=== PATIENT | female | born 1940 | race Caucasian/White ===

== ENCOUNTER 2022-04-01 09:07 | Inpatient (IN) ==
[2022-04-01] MEDS ORDERED: NS 500 ML IV 500 ML IV ONE ×2 (09:25→09:36)
[2022-04-01] MEDS ORDERED: ZOFRAN INJ 4 MG VIAL IVP ONE (09:25)
[2022-04-01 09:29] VITALS: BMI 32.9
--- NOTE | 2022-04-01 09:34 | DR.GENAD ---
HPI Time Seen Time Seen by Provider: 04/01/22 09:25 PCP Primary Care Physician: ANSHU CADET Complaint/Symptoms Chief Complaint Doctors Comments: 81 y/o female presents with vomiting and weakness. PT is a diabetic, had a routine check-up yesterday. Had her DM med increased from 2 to 4 mg BID. Took higher dose with dinner. + nausea, vomiting since last pm. No report of diarrhea or abdominal pain. + generalized weakness this am. Denies fever, chills, URI symptoms, urinary difficulties. Chief Complaint:: PT C/O "ELEVATED BLOOD SUGAR" SINCE LAST NIGHT ASSOCIATED WITH ONE EPISODE OF VOMITING LAST NIGHT AND MULTIPLE EPISODES OF VOMITING THIS MORNING WITH GENERALIZED WEAKNESS. PT DID VOMIT ONCE IN TRIAGE Self Treatment fo Chief Complaint: PT WAS SWITCHED FROM GLIMEPIRIDE 2MG PO BID TO 4MG PO BID WITH FIRST DOSE LAST PM. COVID-19 Coronavirus risk:travel/contact w/high risk person: No Has patient experienced Coronavirus symptoms: No Nurses notes reviewed Nurses Notes Review: Yes Source History Provided: Patient Mode of Arrival Mode of Arrival: Wheelchair Timing Onset of Chief Complaint: 04/01/22 PMH PMH Past Medical History: Yes Past Medical History: Diabetes, Dyslipidemia and Hypertension Past Medical History Comment: GLAUCOMA Past Surgical History: Yes Surgical History: Hysterectomy Past Surgical History Comment: SKIN CANCER REMOVED FROM BUTTOCK, CATARACT SURGERY Family History History of Family Medical Conditions: Yes Family Medical History: Diabetes Mellitus, [place] and Coronary Artery Disease Social History Does patient currently use any type of tobacco product: No Have you used tobacco products in the last 12 months: No Type of Tobacco Use: None Does any household member use tobacco: No Alcohol Use: None Do you use any recreational Drugs:: No Lives With: Spouse Lives Where: Home Travel Risk Coronavirus risk:travel/contact w/high risk person: No Has patient experienced Coronavirus symptoms: No Infectious screening In the last 2 months have you had wt loss of >10#?: NO Have you had fever, night sweats or hemotysis?: No Have you traveled outside the country in the last 6 months?: No Isolation: Standard ROS Review of Systems Constitutional: Weakness; negative Fever Eyes: No Symptoms Reported ENTM: No Symptoms Reported Respiratoy: No Symptoms Reported Cardiovascular: No Symptoms Reported Gastrointestinal/Abdominal: Nausea and Vomiting; negative Abdominal Pain or Diarrhea Genitourinary: No Symptoms Reported Neurological: Weakness Musculoskeletal: No Symptoms Reported Integumentary: No Symptoms Reported Psychiatric: No Symptoms Reported All Other Systems: Reviewed and Negative PE Vital Signs Vitals: Temperature 98.1 F Pulse Rate [Left Brachial] 74 Pulse Rate 78 Respiratory Rate 22 Blood Pressure [Right Arm] 106/66 Blood Pressure [Left Arm] 142/70 Blood Pressure 128/61 O2 Sat by Pulse Oximetry 96 General General Appearance: Alert and In No Apparent Distress Eyes Eye exam: PERRL and EOMI ENT Mouth Exam: Normal Inspection Neck Neck Exam: Normal Inspection; negative Tenderness Respiratory Respiratory Exam: Normal Lung Sounds Bilat; negative Accessory Muscle Use or Respiratory Distress Respiratory Exam: Bilateral: Clear to Auscultation Cardiovascular Cardiovascular Exam: Regular Rate, Normal Rhythm and Normal Heart Sounds Abdominal Exam Abdominal Exam: Normal Bowel Sounds and Soft; negative Tenderness Extremities Extremities Exam: Normal Inspection; negative Edema Neurologic Neurological Exam: Alert, Oriented X3 and CN II-XII Intact; negative Motor Sensory Deficit Skin Skin Exam: Warm and Dry COURSE Treatment Treatment: 81 y/o female with nausea, vomiting and weakness since last pm. W/u initiated, given IV fluids, IV zofran. W/u shows very low sodium at 115, with low chloride at 79. Glucose elevated at 226. CXR without acute abnormalities, CT head done - no acute abnormalities. Will admit for hydration, to to replace her sodium. Discussed wiht her attending's (Dr Bazzi) RN (Luz) for ad mission. [facility] Labs Reviewed Laboratory Results Reviewed?: Yes Result Diagrams: 04/01/22 09:35 04/01/22 09:58 Laboratory: WBC 6.8 X10^3/uL (3.6-10.0) 04/01/22 09:35 RBC 4.38 X10^6/uL (3.5-5.4) 04/01/22 09:35 Hgb 13.1 g/dL (12.0-16.0) 04/01/22 09:35 Hct 36.3 % (36.0-47.0) 04/01/22 09:35 MCV 82.9 fL (80.0-100.0) 04/01/22 09:35 MCH 29.9 pg (27.0-34.0) 04/01/22 09:35 MCHC 36.1 g/dL (33.0-35.0) H 08/18/22 09:35 RDW 14.2 % (11.6-16.5) 04/01/22 09:35 Plt Count 344 X10^3/uL (150.0-450.0) 04/01/22 09:35 MPV 7.6 fL (7.4-11.0) 04/01/22 09:35 Neut % (Auto) 83.0 % (42.0-75.0) H 04/01/22 09:35 Lymph % (Auto) 9.9 % (21.0-51.0) L 04/01/22 09:35 [place] % (Auto) 5.4 % (0.0-13.0) 04/01/22 09:35 Eos % (Auto) 0.9 % (0.9-2.9) 04/01/22 09:35 Baso % (Auto) 0.8 % (0.2-1.0) 04/01/22 09:35 Neut # (Auto) 5.7 x10^3/uL (2.2-4.8) H 04/01/22 09:35 Lymph # (Auto) 0.7 X10^3/uL (1.3-2.9) L 04/01/22 09:35 [place] # (Auto) 0.4 x10^3/uL (0.3-0.8) 04/01/22 09:35 Eos # (Auto) 0.1 x10^3/uL (0.0-0.2) 04/01/22 09:35 Baso # (Auto) 0.1 X10^3/uL (0.0-0.1) 04/01/22 09:35 Absolute Nucleated RBC 0.0 /100WBC 04/01/22 09:35 Sodium 115 mmol/L (136-145) L* 04/01/22 09:58 Corrected Sodium 118 mmol/L (136-145) L 04/01/22 09:58 Potassium 3.6 mmol/L (3.5-5.1) 04/01/22 09:58 Chloride 79 mmol/L (98-107) L* 04/01/22 09:58 Carbon Dioxide 23.3 mmol/L (21-32) 04/01/22 09:58 BUN 13 mg/dL (7-18) 04/01/22 09:58 Creatinine 0.86 mg/dL (0.55-1.02) 04/01/22 09:58 Est GFR (MDRD) Af Amer > 60 (>60) 04/01/22 09:58 Est GFR (MDRD) Non-Af > 60 (>60) 04/01/22 09:58 Glucose 226 mg/dL (65-99) H 04/01/22 09:58 Calcium 8.6 mg/dL (8.5-10.1) 04/01/22 09:58 Corrected Calcium 9.4 mg/dL (8.5-10.1) 04/01/22 09:58 Total Bilirubin 0.50 mg/dL (0.2-1.0) 04/01/22 09:58 AST 21 Units/L (15-37) 04/01/22 09:58 ALT 19 Units/L (12-78) 04/01/22 09:58 Alkaline Phosphatase 65 Units/L (46-116) 04/01/22 09:58 Creatine Kinase 48 Units/L (26-192) 04/01/22 09:58 Troponin I High Sens 8.5 ng/L (4.0-60.0) 04/01/22 09:58 Total Protein 7.3 g/dL (6.4-8.2) 04/01/22 09:58 Albumin 3.0 g/dL (3.4-5.0) L 04/01/22 09:58 Globulin 4.3 g/dL (2.5-4.5) 04/01/22 09:58 Albumin/Globulin Ratio 0.7 Ratio (1.1-2.1) L 04/01/22 09:58 Lipase 109 Units/L (73-393) 04/01/22 09:58 Specimen Type Clean catch urine 04/01/22 11:06 Urine Color Straw (YELLOW) 04/01/22 11:06 Urine Appearance Slightly hazy (CLEAR) 04/01/22 11:06 Urine pH 6.0 (5.0 - 8.0) 04/01/22 11:06 Ur Specific [place] 1.020 (1.000-1.030) 04/01/22 11:06 Urine Protein Negative (NEGATIVE) 04/01/22 11:06 Urine Glucose (UA) 3+ (NEGATIVE) 04/01/22 11:06 Urine Ketones 1+ (NEGATIVE) 04/01/22 11:06 Urine Blood 1+ (NEGATIVE) 04/01/22 11:06 Urine Nitrite Negative (NEGATIVE) 04/01/22 11:06 Urine Bilirubin Negative (NEGATIVE) 04/01/22 11:06 Urine Urobilinogen Normal (NORMAL) 04/01/22 11:06 Ur Leukocyte Esterase Negative (NEGATIVE) 04/01/22 11:06 Urine RBC 0-2 /HPF (0-3) 04/01/22 11:06 Urine WBC None seen /HPF (0-5) 04/01/22 11:06 Ur Squamous Epith Cells Few /HPF (NEGATIVE) 04/01/22 11:06 Urine Bacteria Trace /HPF (NEGATIVE) 04/01/22 11:06 Ur Culture Indicated? No/not indicated 04/01/22 11:06 See comments in " Course" Opioid Opioid Risk Tool Age (Sergey box if 16-45): Yes History of Preadolescent Sexual Abuse: No Total: 1 Total Score Risk Category: Low Risk Copyright: Yeyo [employer] predicting aberrant behaviors Discharge Plan Diagnosis Discharge Problem: Acute hyponatremia Discharge Plan Patient Disposition: 09 ADMITTED INPATIENT Condition: Stable
[2022-04-01] MEDS ORDERED: ZOFRAN INJ 4 MG VIAL ONE (09:36)
[2022-04-01 09:46] LABS: BASOPHILS # (AUTO) 0.1 X10^3/uL (0.0-0.1); BASOPHILS % (AUTO) 0.8 % (0.2-1.0); EOSINOPHILS # (AUTO) 0.1 x10^3/uL (0.0-0.2); EOSINOPHILS % (AUTO) 0.9 % (0.9-2.9); HEMATOCRIT 36.3 % (36.0-47.0); HEMOGLOBIN 13.1 g/dL (12.0-16.0); LYMPHOCYTES # (AUTO) 0.7 X10^3/uL (1.3-2.9); LYMPHOCYTES % (AUTO) 9.9 % (21.0-51.0); MEAN CORPUSCULAR HEMOGLOBIN 29.9 pg (27.0-34.0); MEAN CORPUSCULAR HGB CONC 36.1 g/dL (33.0-35.0); MEAN CORPUSCULAR VOLUME 82.9 fL (80.0-100.0); MEAN PLATELET VOLUME 7.6 fL (7.4-11.0); MONOCYTES # (AUTO) 0.4 x10^3/uL (0.3-0.8); MONOCYTES % (AUTO) 5.4 % (0.0-13.0); NEUTROPHILS # (AUTO) 5.7 x10^3/uL (2.2-4.8); RED BLOOD COUNT 4.38 X10^6/uL (3.5-5.4); RED CELL DISTRIBUTION WIDTH 14.2 % (11.6-16.5); WHITE BLOOD COUNT 6.8 X10^3/uL (3.6-10.0)
[2022-04-01 10:22] LABS: ALANINE AMINOTRANSFERASE 19 Units/L (12-78); ALKALINE PHOSPHATASE 65 Units/L (46-116); ASPARTATE AMINO TRANSFERASE 21 Units/L (15-37); BLOOD UREA NITROGEN 13 mg/dL (7-18); CALCIUM 8.6 mg/dL (8.5-10.1); CARBON DIOXIDE 23.3 mmol/L (21-32); COR CA(FOR HYPOALB) 9.4 mg/dL (8.5-10.1); COR NA(FOR HYPERGLY) 118 mmol/L (136-145); CREATINE KINASE 48 Units/L (26-192); CREATININE 0.86 mg/dL (0.55-1.02); LIPASE 109 Units/L (73-393); TOTAL PROTEIN 7.3 g/dL (6.4-8.2); eGFR NON BLACK RACES > 60 (>60)
[2022-04-01 10:24] LABS: CHLORIDE 79 mmol/L (98-107); SODIUM 115 mmol/L (136-145)
[2022-04-01 11:18] LABS: BILIRUBIN,URINE NEGATIVE (NEGATIVE); BLOOD/HEMOGLOBIN,URINE 1+ (NEGATIVE); GLUCOSE, URINE 3+ (NEGATIVE); KETONES,URINE 1+ (NEGATIVE); LEUKOCYTE ESTERASE ,URINE NEGATIVE (NEGATIVE); NITRITES,URINE NEGATIVE (NEGATIVE); PROTEIN,URINE NEGATIVE (NEGATIVE); UROBILINOGEN,URINE NORMAL (NORMAL)
[2022-04-01 11:25] LABS: APPEARANCE,URINE SLIGHTLY HAZY (CLEAR); COLOR,URINE STRAW (YELLOW)
[2022-04-01 11:30] LABS: RBC,URINE 0-2 /HPF (0-3)
[2022-04-01 11:31] LABS: BACTERIA,URINE TRACE /HPF (NEGATIVE); SQUAMOUS EPITHELIAL CELL,UR FEW /HPF (NEGATIVE)
[2022-04-01] MEDS ORDERED: NS 1,000 ML IV 1,000 ML ONE (12:19)
[2022-04-01] MEDS: NS 1,000 ML IV 1,000 ML IV SCH ×2 (12:23→21:46)
--- NOTE | 2022-04-01 12:23 | CT ---
BRAIN W/O CONCLINICAL INDICATION: HYPONATREMIATECHNIQUE: Images were obtained through the head per standard CT protocol. Multiplanar reformatted images were generated from the CT dataset. Dose reduction techniques including Automated Exposure Control (AEC) and adjustment of mA and kV were utlized.COMPARISON:NoneFINDINGS:Diffuse patchy and confluent periventricular and subcortical hypoattenuation with associated volume loss . There is no evidence of acute infarction, intracranial hemorrhage, mass or mass effect, or abnormal extra-axial collection . The density of the larger dural venous sinuses is normal. Age-related, ex-vacuo dilatation of the ventricles and sulci . The skull base and calvarium are normal . The included paranasal sinuses and mastoid air cells are predominantly clear .IMPRESSION:1. No acute intracranial abnormality. Chronic microangiopathic changes and ex vacuo dilatation of the ventricles and sulci.[]Electronically signed by: JOSE LUNA (Apr 01, 2022 12:21:11)
--- NOTE | 2022-04-01 14:08 | RAD ---
HISTORYWEAKNESS, HTN, DIABETES.br GLAUCOMA.brHYSTERECTOMY.brCATARACTSTUDYCHEST, 1 VIEWCOMPARISONFINDINGSThe trachea is midline. The cardiac silhouette is unremarkable. The aorta is tortuous with atherosclerosis the lungs are clear without focal infiltrate or effusion. The bony thorax is unremarkable.IMPRESSIONNo acute cardiopulmonary findings .Electronically signed by: Rojelio Torres (Apr 01, 2022 14:06:55)
[2022-04-01] MEDS: VALIUM PO SCH (15:19)
[2022-04-01] MEDS ORDERED: ZESTRIL TAB 20 MG ONE (15:23)
[2022-04-01] MEDS: ZESTRIL TAB 20 MG PO SCH (15:30)
[2022-04-01] MEDS: NORVASC TAB 10 MG PO SCH (15:30)
[2022-04-01] MEDS: SNACK - Diabetic Appropriate PO SCH (21:45)
[2022-04-01] MEDS: ULTRAM PO SCH (21:46)
[2022-04-01] MEDS: LOPRESSOR TAB 50 MG PO SCH (21:46)
[2022-04-01] MEDS: AMARYL TAB 4 MG PO SCH (21:47)
[2022-04-02] MEDS: NS 1,000 ML IV 1,000 ML IV SCH ×4 (05:07→21:51)
[2022-04-02 06:15] LABS: BASOPHILS % (AUTO) 0.6 % (0.2-1.0); EOSINOPHILS # (AUTO) 0.2 x10^3/uL (0.0-0.2); EOSINOPHILS % (AUTO) 2.5 % (0.9-2.9); HEMATOCRIT 34.8 % (36.0-47.0); HEMOGLOBIN 12.3 g/dL (12.0-16.0); LYMPHOCYTES # (AUTO) 1.1 X10^3/uL (1.3-2.9); LYMPHOCYTES % (AUTO) 14.4 % (21.0-51.0); MEAN CORPUSCULAR HEMOGLOBIN 29.7 pg (27.0-34.0); MEAN CORPUSCULAR HGB CONC 35.3 g/dL (33.0-35.0); MEAN CORPUSCULAR VOLUME 84.1 fL (80.0-100.0); MEAN PLATELET VOLUME 7.4 fL (7.4-11.0); MONOCYTES # (AUTO) 0.6 x10^3/uL (0.3-0.8); MONOCYTES % (AUTO) 7.7 % (0.0-13.0); NEUTROPHILS # (AUTO) 5.6 x10^3/uL (2.2-4.8); NEUTROPHILS % (AUTO) 74.8 % (42.0-75.0); RED BLOOD COUNT 4.13 X10^6/uL (3.5-5.4); RED CELL DISTRIBUTION WIDTH 14.3 % (11.6-16.5); WHITE BLOOD COUNT 7.4 X10^3/uL (3.6-10.0)
[2022-04-02 06:31] LABS: ALANINE AMINOTRANSFERASE 18 Units/L (12-78); ALBUMIN 2.9 g/dL (3.4-5.0); ALKALINE PHOSPHATASE 61 Units/L (46-116); ASPARTATE AMINO TRANSFERASE 21 Units/L (15-37); BLOOD UREA NITROGEN 11 mg/dL (7-18); CALCIUM 8.2 mg/dL (8.5-10.1); CARBON DIOXIDE 26.6 mmol/L (21-32); CHLORIDE 88 mmol/L (98-107); COR CA(FOR HYPOALB) 9.1 mg/dL (8.5-10.1); CREATININE 0.84 mg/dL (0.55-1.02); TOTAL PROTEIN 6.9 g/dL (6.4-8.2); eGFR NON BLACK RACES > 60 (>60)
[2022-04-02 06:43] LABS: SODIUM 124 mmol/L (136-145)
[2022-04-02] MEDS ORDERED: ZESTRIL TAB 20 MG ONE (07:30)
[2022-04-02] MEDS: ULTRAM PO SCH ×2 (08:08→21:51)
[2022-04-02] MEDS: LOPRESSOR TAB 50 MG PO SCH ×2 (08:09→21:52)
[2022-04-02] MEDS: VALIUM PO SCH (08:09)
[2022-04-02] MEDS: AMARYL TAB 4 MG PO SCH ×2 (08:09→21:51)
[2022-04-02] MEDS: NORVASC TAB 10 MG PO SCH (08:09)
[2022-04-02] MEDS: ZESTRIL TAB 20 MG PO SCH (08:09)
[2022-04-02] MEDS ORDERED: POTASSIUM CHLORIDE LIQ 20 MEQ UDC PO PRN (11:02)
[2022-04-02] MEDS ORDERED: POTASSIUM CHL 60 MEQ/NS 0.45% 500 ML IV PRN (11:02)
[2022-04-02] MEDS ORDERED: KLOR-CON PO PRN (11:02)
[2022-04-02] MEDS ORDERED: POTASSIUM CHL 40 MEQ/NS 0.45% 500 ML IV PRN (11:02)
[2022-04-02] MEDS ORDERED: K-RIDER 10 MEQ/NS 100 ML 10 MEQ/100 ML BAG IV PRN (11:02)
[2022-04-02] MEDS ORDERED: MICRO K EXTEN CAP 10 MEQ PO PRN (11:02)
--- NOTE | 2022-04-02 11:42 | DR.H&P ---
H&P - History & Physical for Day of: H&P Date: 04/01/22 - Chief Complaint Chief Complaint: SOB, WEAKNESS, NAUSEA AND VOMITING - History of Present Illness History of Present Illness: IS A 81 YEAR OLD PATIENT OF OURS. SHE PRESENTED TO THE ER WITH COMPLAINTS OF WEAKNESS, SHORTNESS OF BREATH, NAUSEA, AND VOMITING. SHE ALSO COMPLAINS OF ELEVATED BLOOD GLUCOSE LEVELS. PATIENT REPORTS THAT SYMPTOMS STARTED ONE DAY PRIOR, AFTER HER GLIMEPERIDE WAS INCREASED FROM 2MG BID TO 4 MG BID. SHE REPORTS MULTIPLE EPISODES OF VOMITING SINCE INCREASING MEDICATION. HER PMH INCLUDES DM II, DYSLIPIDEMIA, HTN, GLAUCOMA, AND HYSTERECTOMY. ON ARRIVAL TO THE ER, VITALS WERE: 98.1-78-22-96%-128/61. LABS WERE OBTAINED. WBC 6.8, RBC 4.38, HGB 13.1, HCT 36.3, PLT COUNT 344, SODIUM 115, POTASSIUM 3.6, CHLORIDE 79, BUN 13, CREATININE 0.86, GLUCOSE 226, CALCIUM 8.6, AST 21, ALT 19, ALK PHOS 65, CREATINE KINASE 48, TOTAL PROTEIN 7.3, ALBUMIN 3.0, TSH 3RD GEN 0.425. URINALYSIS WAS OBTAINED AND WAS UNREMARKABLE. COVID-19 NEGATIVE. A CHEST XRAY WAS OBTAINED AND REVEALED: The trachea is midline. The cardiac silhouette is unremarkable. The aorta is tortuous with atherosclerosis the lungs are clear without focal infiltrate or effusion. The bony thorax is unremarkable. A BRAIN CT WAS OBTAINED AND REVEALED: No acute intracranial abnormality. Chronic microangiopathic changes and ex vacuo dilatation of the ventricles and sulci. IN THE ER, SHE WAS GIVEN A NORMAL SALINE BOLUS AND ZOFRAN 4MG IV X 1 DOSE. SHE WAS ADMITTED TO THE HOSPITAL FOR FURTHER EVALUATION AND TREATMENT OF HYPONATREMIA AND HYPOKALEMIA. SHE WAS STARTED ON NORMAL SALINE AT 125 ML/HR, THE POTASSIUM AND MAGNESIUM PROTOCOLS, AND HER HOME MEDICATIONS OF NORVASC, VALIUM, AMARYL, ZESTRIL, LOPRESSOR, AND TRAMADOL WERE RESUMED. WE WILL OBTAIN A CHEST CT WITH CONTRAST DUE TO COMPLAINTS OF SOB AND HYPONATREMIA. WE WILL RULE OUT ANY MALIGNANT PROCESS THAT MAY BE THE CAUSE OF HYPONATREMIA AND SOB. OTHERWISE, WE PLAN TO FOLLOW-UP WITH AM LABS AND CONTINUE TO MONITOR. TIME SPENT ON CLINICAL ASSESSMENT, REVIWING LABS AND IMAGING, DECISION MAKING, AND DOCUMENTATION GREATER THAN 75 MINUTES. - Past Medical History Past Medical History: Hypertension, Dyslipidemia, Diabetes - Past Surgical History Surgical History: Hysterectomy - Family History Family Medical History: Diabetes Mellitus, Cancer, Hypertension - Social History Does patient currently use any type of tobacco product: No Have you used tobacco products in the last 12 months: No Type of Tobacco Use: None Does any household member use tobacco: No Alcohol Use: None Drug Use: None - Medications Home Medications: STEROIDS Adverse Reaction (Uncoded 08/26/18 17:05) CONTINUE taking the following medications amlodipine 10 mg tablet 1 tab PO QDAY 04/01/22 [History] diazepam 2 mg tablet 1 tab PO QDAY 04/01/22 [History] fenofibrate nanocrystallized 145 mg tablet 1 tab PO QDAY 04/01/22 [History] glimepiride 4 mg tablet 1 tab PO BID 04/01/22 [History] lisinopril 20 mg tablet 1 tab PO QDAY 04/01/22 [History] lisinopril 20 mg-hydrochlorothiazide 25 mg tablet 1 tab PO QAM 04/01/22 [History] metoprolol tartrate 50 mg tablet 1 tab PO BID 04/01/22 [History] tramadol 50 mg tablet 1 tab PO BID 04/01/22 [History] - Review of Systems Constitutional: Weakness Eyes: No Symptoms Reported ENT: No Symptoms Reported Respiratory: See HPI, Shortness of Breath, SOB with Excertion Cardiovascular: No Symptoms Reported Gastrointestinal: Nausea, Vomiting Genitourinary: No Symptoms Reported Musculoskeletal: No Symptoms Reported Skin: No Symptoms Reported Neurological: Weakness - Physical Exam Vital Signs: Temperature 97.9 F Pulse Rate [Left Brachial] 65 Pulse Rate 78 Respiratory Rate 16 Blood Pressure [Right Arm] 132/61 Blood Pressure [Left Arm] 141/65 Blood Pressure 128/61 O2 Sat by Pulse Oximetry 94 Oriented: Normal Eyes: Normal Ear: Normal Nose: Normal Throat: Normal Respiratory: Diminished Throughout Cardiovascular: Normal : Normal Auscultation: Bowel Sounds: Normal Palpation: Normal Tenderness: Normal Skin: Decreased Turgur Musculoskeletal: Normal Psychiatric: Normal Mood Description: Calm Affect: Normal Speech Pattern: Clear - Assessment/Plan (1) Acute hyponatremia Status: Acute (2) Hypokalemia Status: Acute (3) Nausea and vomiting Qualifiers: Vomiting type: unspecified Qualified Code(s): R11.2 - Nausea with vomiting, unspecified Status: Acute (4) Shortness of breath Status: Acute - Allergies Allergies/Adverse Reactions: Allergies Allergy/AdvReac Type Severity Reaction Status Date / Time STEROIDS AdvReac Uncoded 08/26/18 17:05
[2022-04-02] MEDS: K-DUR TAB 20 MEQ PO PRN (12:51)
[2022-04-02] MEDS: MAGNESIUM SULFATE 1 GRAM/100 mL PREMIX 1 G/100 ML BAG IV PRN ×2 (12:52→15:15)
--- NOTE | 2022-04-02 13:06 | PCM.PROG ---
Progress Note - Progress Note for Day of Date of Exam: 04/02/22 - Subjective Subjective: WAS ADMITTED FOR TREATMENT FOR TREATMENT OF ACUTE HYPONATREMIA, HYPOKALEMIA, NAUSEA AND VOMITING, AND SHORTNESS OF BREATH. TODAY, SHE IS ALERT AND ORIENTED, LYING IN BED ON MORNING ROUNDS. SHE CONTINUES WITH COMPLAINTS OF GENERALIZED WEAKNESS AND SHORTNESS OF BREATH AND NAUSEA AT TIMES. ON EXAMINATION, HEART IS REGULAR IN RATE AND RHYTHM. BILATERAL LUNGS NOTED WITH DIMINISHED LUNG SOUNDS THROUGHOUT. ABDOMEN IS ROUND, SOFT, AND NON-TENDER WITH NORMAL BOWEL SOUNDS NOTED IN ALL QUADRANTS. NO UPPER OR LOWER EXTREMITY EDEMA NOTED. HER VITALS THIS MORNING ARE: 97.9-65-18-94%-132/61. LABS WERE OBTAINED. WBC 7.4, RBC 4.13, HGB 12.3, HCT 34.8, PLT COUNT 304, SODIUM 124, POTASSIUM 3.2, BUN 11, CREATININE 0.84, GLUCOSE 107, CALCIUM 8.2, AST 21, ALT 18, ALK PHOS 61, TOTAL PROTEIN 6.9, ALBUMIN 2.9. SHE IS CURRENTLY RECEIVING NORMAL SALINE AT 125 ML/HR, THE POTASSIUM AND MAGNESIUM PROTOCOLS, AND HER HOME MEDICATIONS OF NORVASC, VALIUM, AMARYL, ZESTRIL, LOPRESSOR, AND TRAMADOL WERE RESUMED. WE WILL OBTAIN A CHEST CT WITH CONTRAST DUE TO COMPLAINTS OF SOB AND HYPONATREMIA. WE WILL RULE OUT ANY MALIGNANT PROCESS THAT MAY BE THE CAUSE OF HYPONATREMIA AND SOB. OTHERWISE, WE PLAN TO FOLLOW-UP WITH AM LABS AND CONTINUE TO MONITOR. TIME SPENT ON CLINICAL ASSESSMENT, REVIWING LABS AND IMAGING, DECISION MAKING, AND DOCUMENTATION GREATER THAN 45 MINUTES. - Past Medical Family Social History Past Med/Fam/Surg Hx: No changes since H&P Allergies: Allergies STEROIDS Adverse Reaction (Uncoded 08/26/18 17:05) PT. STATES IT MAKES HER BLOOD SUGAR TOO HIGH. - Review of Systems ROS: No change since H&P - Vital Signs and I&O's Vital Signs: Temperature 98.0 F Pulse Rate [Left Brachial] 64 Pulse Rate 78 Respiratory Rate 18 Blood Pressure [Right Arm] 122/60 Blood Pressure [Left Arm] 141/65 Blood Pressure 128/61 O2 Sat by Pulse Oximetry 95 Intake and Output: Intake & Output 03/31/22 04/01/22 04/02/22 04/03/22 11:59 11:59 11:59 11:59 Intake Total 3308 / 3308 Balance 3308 / 3308 - Physical Exam Oriented: Normal Eyes: Normal Ear: Normal Nose: Normal Throat: Normal Respiratory: Generalized, Diminished Cardiovascular: Normal : Normal Auscultation: Bowel Sounds: Normal Palpation: Normal Tenderness: Normal Skin: Decreased Turgur Musculoskeletal: Normal Psychiatric: Normal Mood Description: Calm Affect: Normal Speech Pattern: Clear - Laboratory and Diagnostics Result Diagrams: 04/02/22 05:32 04/02/22 05:32 Labs: Laboratory WBC 7.4 X10^3/uL (3.6-10.0) 04/02/22 05:32 RBC 4.13 X10^6/uL (3.5-5.4) 04/02/22 05:32 Hgb 12.3 g/dL (12.0-16.0) 04/02/22 05:32 Hct 34.8 % (36.0-47.0) L 04/02/22 05:32 MCV 84.1 fL (80.0-100.0) 04/02/22 05:32 MCH 29.7 pg (27.0-34.0) 04/02/22 05:32 MCHC 35.3 g/dL (33.0-35.0) H 04/02/22 05:32 RDW 14.3 % (11.6-16.5) 04/02/22 05:32 Plt Count 304 X10^3/uL (150.0-450.0) 04/02/22 05:32 MPV 7.4 fL (7.4-11.0) 04/02/22 05:32 Neut % (Auto) 74.8 % (42.0-75.0) 04/02/22 05:32 Lymph % (Auto) 14.4 % (21.0-51.0) L 04/02/22 05:32 [place] % (Auto) 7.7 % (0.0-13.0) 04/02/22 05:32 Eos % (Auto) 2.5 % (0.9-2.9) 04/02/22 05:32 Baso % (Auto) 0.6 % (0.2-1.0) 04/02/22 05:32 Neut # (Auto) 5.6 x10^3/uL (2.2-4.8) H 04/02/22 05:32 Lymph # (Auto) 1.1 X10^3/uL (1.3-2.9) L 04/02/22 05:32 [place] # (Auto) 0.6 x10^3/uL (0.3-0.8) 04/02/22 05:32 Eos # (Auto) 0.2 x10^3/uL (0.0-0.2) 04/02/22 05:32 Baso # (Auto) 0.0 X10^3/uL (0.0-0.1) 04/02/22 05:32 Absolute Nucleated RBC 0.0 /100WBC 04/02/22 05:32 Sodium 124 mmol/L (136-145) L* 04/02/22 05:32 Corrected Sodium TNP 04/02/22 05:32 Potassium 3.2 mmol/L (3.5-5.1) L 04/02/22 05:32 Chloride 88 mmol/L (98-107) L 04/02/22 05:32 Carbon Dioxide 26.6 mmol/L (21-32) 04/02/22 05:32 BUN 11 mg/dL (7-18) 04/02/22 05:32 Creatinine 0.84 mg/dL (0.55-1.02) 04/02/22 05:32 Est GFR (MDRD) Af Amer > 60 (>60) 04/02/22 05:32 Est GFR (MDRD) Non-Af > 60 (>60) 04/02/22 05:32 Glucose 107 mg/dL (65-99) H 04/02/22 05:32 POC Glucose (mg/dL) 118 mg/dL (65-99) H 04/02/22 11:13 Calcium 8.2 mg/dL (8.5-10.1) L 04/02/22 05:32 Corrected Calcium 9.1 mg/dL (8.5-10.1) 04/02/22 05:32 Magnesium 1.7 mg/dL (1.7-2.9) 04/02/22 05:32 Total Bilirubin 0.50 mg/dL (0.2-1.0) 04/02/22 05:32 AST 21 Units/L (15-37) 04/02/22 05:32 ALT 18 Units/L (12-78) 04/02/22 05:32 Alkaline Phosphatase 61 Units/L (46-116) 04/02/22 05:32 Creatine Kinase 48 Units/L (26-192) 04/01/22 09:58 Troponin I High Sens 8.5 ng/L (4.0-60.0) 04/01/22 09:58 Total Protein 6.9 g/dL (6.4-8.2) 04/02/22 05:32 Albumin 2.9 g/dL (3.4-5.0) L 04/02/22 05:32 Globulin 4.0 g/dL (2.5-4.5) 04/02/22 05:32 Albumin/Globulin Ratio 0.7 Ratio (1.1-2.1) L 04/02/22 05:32 Lipase 109 Units/L (73-393) 04/01/22 09:58 TSH 3rd Generation 0.425 uIU/mL (0.358-3.74) 04/01/22 09:58 Specimen Type Clean catch urine 04/01/22 11:06 Urine Color Straw (YELLOW) 04/01/22 11:06 Urine Appearance Slightly hazy (CLEAR) 04/01/22 11:06 Urine pH 6.0 (5.0 - 8.0) 04/01/22 11:06 Ur Specific [place] 1.020 (1.000-1.030) 04/01/22 11:06 Urine Protein Negative (NEGATIVE) 04/01/22 11:06 Urine Glucose (UA) 3+ (NEGATIVE) 04/01/22 11:06 Urine Ketones 1+ (NEGATIVE) 04/01/22 11:06 Urine Blood 1+ (NEGATIVE) 04/01/22 11:06 Urine Nitrite Negative (NEGATIVE) 04/01/22 11:06 Urine Bilirubin Negative (NEGATIVE) 04/01/22 11:06 Urine Urobilinogen Normal (NORMAL) 04/01/22 11:06 Ur Leukocyte Esterase Negative (NEGATIVE) 04/01/22 11:06 Urine RBC 0-2 /HPF (0-3) 04/01/22 11:06 Urine WBC None seen /HPF (0-5) 04/01/22 11:06 Ur Squamous Epith Cells Few /HPF (NEGATIVE) 04/01/22 11:06 Urine Bacteria Trace /HPF (NEGATIVE) 04/01/22 11:06 Ur Culture Indicated? No/not indicated 04/01/22 11:06 SARS-CoV-2 (PCR) Negative (NEGATIVE) 04/01/22 11:45 - Plan (1) Acute hyponatremia Status: Acute Plan: NORMAL SALINE AT 125 ML/HR, THE POTASSIUM AND MAGNESIUM PROTOCOLS, AND HER HOME MEDICATIONS OF NORVASC, VALIUM, AMARYL, ZESTRIL, LOPRESSOR, AND TRAMADOL WERE RESUMED (2) Hypokalemia Status: Acute (3) Nausea and vomiting Status: Acute Qualifiers: Vomiting type: unspecified Qualified Code(s): R11.2 - Nausea with vomiting, unspecified (4) Shortness of breath Status: Acute
--- NOTE | 2022-04-02 14:19 | CT ---
HISTORYSOB, HYPOTHERMIASTUDYCT chest with IV contrastCOMPARISONX-ray 04/01/2022TECHNIQUEMultiple axial images of the chest were obtained from the thoracic inlet to the upper abdomenwith the administration of IV contrast. Sagittal and coronal reformations are performed. Dose reduction techniques including Automated Exposure Control (AEC) and adjustment of mA and kV were utilized.FINDINGSThere is cardiomegaly and probable mild CHF. There may be very minimal pulmonary edema in the lower lungs with slight septal thickening and interstitial densities. Likely minimal bibasilar atelectasis is present, also. No pleural effusion is seen and there is no pericardial effusion.Mild apical scarring is seen. No suggestion of pneumonia. Probably reactive mediastinal lymph nodes are seen. Coronary artery vascular calcifications are seen. Ascending thoracic aorta is upper normal limits in size and it tapers in the arch. No suggestion of aortic dissection. A few small reactive appearing periportal lymph nodes are seen.IMPRESSIONProbable mild CHF there may be mild pulmonary edema.Electronically signed by: Brannon Andino (Apr 02, 2022 14:17:27)
[2022-04-02] MEDS: SNACK - Diabetic Appropriate PO SCH (21:50)
[2022-04-03] MEDS: NS 1,000 ML IV 1,000 ML IV SCH ×3 (05:12→20:50)
[2022-04-03 06:36] LABS: BASOPHILS # (AUTO) 0.1 X10^3/uL (0.0-0.1); EOSINOPHILS # (AUTO) 0.2 x10^3/uL (0.0-0.2); LYMPHOCYTES # (AUTO) 1.1 X10^3/uL (1.3-2.9); MONOCYTES # (AUTO) 0.6 x10^3/uL (0.3-0.8)
[2022-04-03 06:55] LABS: ALANINE AMINOTRANSFERASE 21 Units/L (12-78); ALKALINE PHOSPHATASE 61 Units/L (46-116); ASPARTATE AMINO TRANSFERASE 23 Units/L (15-37); BLOOD UREA NITROGEN 12 mg/dL (7-18); CALCIUM 8.2 mg/dL (8.5-10.1); CARBON DIOXIDE 28.5 mmol/L (21-32); CHLORIDE 95 mmol/L (98-107); CREATININE 0.91 mg/dL (0.55-1.02); SODIUM 132 mmol/L (136-145); TOTAL PROTEIN 7.1 g/dL (6.4-8.2); eGFR NON BLACK RACES > 60 (>60)
[2022-04-03 07:04] LABS: HEMATOCRIT 35.6 % (36.0-47.0); HEMOGLOBIN 12.3 g/dL (12.0-16.0); LYMPHOCYTES % (AUTO) 19.1 % (21.0-51.0); MEAN CORPUSCULAR HEMOGLOBIN 29.4 pg (27.0-34.0); MEAN CORPUSCULAR HGB CONC 34.7 g/dL (33.0-35.0); MEAN CORPUSCULAR VOLUME 84.8 fL (80.0-100.0); MEAN PLATELET VOLUME 7.4 fL (7.4-11.0); MONOCYTES % (AUTO) 10.8 % (0.0-13.0); NEUTROPHILS # (AUTO) 3.7 x10^3/uL (2.2-4.8); NEUTROPHILS % (AUTO) 65.1 % (42.0-75.0); RED CELL DISTRIBUTION WIDTH 14.5 % (11.6-16.5); WHITE BLOOD COUNT 5.7 X10^3/uL (3.6-10.0)
[2022-04-03] MEDS ORDERED: ZESTRIL TAB 20 MG ONE (09:16)
[2022-04-03] MEDS: VALIUM PO SCH (09:33)
[2022-04-03] MEDS: LOPRESSOR TAB 50 MG PO SCH ×2 (09:34→20:50)
[2022-04-03] MEDS: AMARYL TAB 4 MG PO SCH ×2 (09:34→20:52)
[2022-04-03] MEDS: ULTRAM PO SCH ×2 (09:34→20:49)
[2022-04-03] MEDS: NORVASC TAB 10 MG PO SCH (09:35)
[2022-04-03] MEDS: ZESTRIL TAB 20 MG PO SCH (09:35)
[2022-04-03] MEDS: SNACK - Diabetic Appropriate PO SCH (20:52)
[2022-04-04] MEDS: NS 1,000 ML IV 1,000 ML IV SCH ×3 (04:40→22:01)
[2022-04-04 06:24] LABS: BASOPHILS # (AUTO) 0.1 X10^3/uL (0.0-0.1); EOSINOPHILS # (AUTO) 0.4 x10^3/uL (0.0-0.2); EOSINOPHILS % (AUTO) 5.4 % (0.9-2.9); HEMATOCRIT 36.7 % (36.0-47.0); HEMOGLOBIN 12.7 g/dL (12.0-16.0); LYMPHOCYTES # (AUTO) 1.6 X10^3/uL (1.3-2.9); LYMPHOCYTES % (AUTO) 24.5 % (21.0-51.0); MEAN CORPUSCULAR HEMOGLOBIN 29.6 pg (27.0-34.0); MEAN CORPUSCULAR HGB CONC 34.7 g/dL (33.0-35.0); MEAN CORPUSCULAR VOLUME 85.4 fL (80.0-100.0); MONOCYTES # (AUTO) 0.6 x10^3/uL (0.3-0.8); MONOCYTES % (AUTO) 8.6 % (0.0-13.0); NEUTROPHILS % (AUTO) 60.5 % (42.0-75.0); RED CELL DISTRIBUTION WIDTH 14.5 % (11.6-16.5); WHITE BLOOD COUNT 6.6 X10^3/uL (3.6-10.0)
[2022-04-04 06:46] LABS: ALANINE AMINOTRANSFERASE 22 Units/L (12-78); ALBUMIN 3.1 g/dL (3.4-5.0); ALKALINE PHOSPHATASE 67 Units/L (46-116); BLOOD UREA NITROGEN 10 mg/dL (7-18); CALCIUM 8.2 mg/dL (8.5-10.1); CARBON DIOXIDE 26.7 mmol/L (21-32); CHLORIDE 97 mmol/L (98-107); COR CA(FOR HYPOALB) 8.9 mg/dL (8.5-10.1); MAGNESIUM 1.9 mg/dL (1.7-2.9); SODIUM 134 mmol/L (136-145); TOTAL PROTEIN 7.3 g/dL (6.4-8.2); eGFR NON BLACK RACES > 60 (>60)
[2022-04-04 07:08] LABS: PLATELET MORPHOLOGY COMMENT NORMAL (NORMAL)
[2022-04-04 07:13] LABS: ASPARTATE AMINO TRANSFERASE 23 Units/L (15-37)
[2022-04-04] MEDS ORDERED: ZESTRIL TAB 20 MG ONE (07:44)
[2022-04-04] MEDS: K-DUR TAB 20 MEQ PO PRN (09:06)
[2022-04-04] MEDS: VALIUM PO SCH (09:07)
[2022-04-04] MEDS: LOPRESSOR TAB 50 MG PO SCH ×2 (09:07→20:26)
[2022-04-04] MEDS: ULTRAM PO SCH ×2 (09:08→20:26)
[2022-04-04] MEDS: ZESTRIL TAB 20 MG PO SCH (09:08)
[2022-04-04] MEDS: AMARYL TAB 4 MG PO SCH ×2 (09:09→21:25)
[2022-04-04] MEDS: NORVASC TAB 10 MG PO SCH (09:09)
[2022-04-04] MEDS: MAGNESIUM SULFATE 1 GRAM/100 mL PREMIX 1 G/100 ML BAG IV PRN ×2 (09:18→10:33)
[2022-04-04] MEDS: SNACK - Diabetic Appropriate PO SCH (20:00)
[2022-04-05] MEDS: NS 1,000 ML IV 1,000 ML IV SCH (05:09)
[2022-04-05 06:14] LABS: BASOPHILS # (AUTO) 0.1 X10^3/uL (0.0-0.1); BASOPHILS % (AUTO) 1.8 % (0.2-1.0); EOSINOPHILS # (AUTO) 0.4 x10^3/uL (0.0-0.2); EOSINOPHILS % (AUTO) 6.3 % (0.9-2.9); HEMATOCRIT 36.1 % (36.0-47.0); HEMOGLOBIN 12.7 g/dL (12.0-16.0); LYMPHOCYTES # (AUTO) 1.3 X10^3/uL (1.3-2.9); LYMPHOCYTES % (AUTO) 21.5 % (21.0-51.0); MEAN CORPUSCULAR HEMOGLOBIN 29.7 pg (27.0-34.0); MEAN CORPUSCULAR VOLUME 84.8 fL (80.0-100.0); MONOCYTES # (AUTO) 0.4 x10^3/uL (0.3-0.8); MONOCYTES % (AUTO) 7.1 % (0.0-13.0); NEUTROPHILS # (AUTO) 3.8 x10^3/uL (2.2-4.8); NEUTROPHILS % (AUTO) 63.3 % (42.0-75.0); RED BLOOD COUNT 4.26 X10^6/uL (3.5-5.4); RED CELL DISTRIBUTION WIDTH 14.6 % (11.6-16.5)
[2022-04-05 06:31] LABS: ALANINE AMINOTRANSFERASE 22 Units/L (12-78); ALBUMIN 2.9 g/dL (3.4-5.0); ALKALINE PHOSPHATASE 67 Units/L (46-116); ASPARTATE AMINO TRANSFERASE 24 Units/L (15-37); BLOOD UREA NITROGEN 8 mg/dL (7-18); CALCIUM 8.1 mg/dL (8.5-10.1); CARBON DIOXIDE 23.8 mmol/L (21-32); CHLORIDE 99 mmol/L (98-107); CREATININE 0.72 mg/dL (0.55-1.02); MAGNESIUM 1.9 mg/dL (1.7-2.9); SODIUM 134 mmol/L (136-145); TOTAL PROTEIN 7.1 g/dL (6.4-8.2); eGFR NON BLACK RACES > 60 (>60)
[2022-04-05 06:49] LABS: PLATELET MORPHOLOGY COMMENT NORMAL (NORMAL)
[2022-04-05] MEDS ORDERED: ZESTRIL TAB 20 MG ONE (08:13)
[2022-04-05] MEDS: ULTRAM PO SCH (08:34)
[2022-04-05] MEDS: LOPRESSOR TAB 50 MG PO SCH (08:34)
[2022-04-05] MEDS: NORVASC TAB 10 MG PO SCH (08:35)
[2022-04-05] MEDS: AMARYL TAB 4 MG PO SCH (08:35)
[2022-04-05] MEDS: ZESTRIL TAB 20 MG PO SCH (08:36)
[2022-04-05] MEDS: VALIUM PO SCH (08:36)
[2022-04-05 12:06] VITALS: BP 143/70
== END 2022-04-05 11:50 | disposition home or self-care (01) | DRG 641 ==
LOC: ER 09:07 → OBS 11:45 → MED/SURG 16:15
PROVIDERS: ADMIT Internal Medicine; ATTEND Internal Medicine
DX: E87.1 Hypo-osmolality and hyponatremia; R06.02 Shortness of breath; R11.2 Nausea with vomiting, unspecified; E11.65 Type 2 diabetes mellitus with hyperglycemia; I10 Essential (primary) hypertension; R53.1 Weakness